=== PATIENT | male | born 1990 | race African-American/Black ===

== ENCOUNTER 2019-11-05 22:54 | Emergency (ER) | payer OTHER ==
[~2019-11-05] VITALS: Ht 185.4 cm; Wt 108.9 kg
--- NOTE | 2019-11-05 23:40 | NUR ---
PT [id number]. BIBS. C/O L CHEST PAIN @ 2230. NOT PRESENT AT THIS TIME. PT STATES HE HAS HX OF ANIXETY AND FEELS ANXIOUS. VSS. PLACED ON MONITOR AND PULSE OX. VSS. NO ACUTE DISTRESS NOTED.
[2019-11-05 23:58] LABS: BASOPHILS # (AUTO) 0.1 /CMM (0.0-0.2); BASOPHILS % (AUTO) 0.7 % (0.0-2.0); EOSINOPHILS % (AUTO) 1.9 % (0.0-6.0); HEMATOCRIT 45 % (39-51); HEMOGLOBIN 14.9 g/dL (13.5-17.5); LYMPHOCYTES # (AUTO) 2.9 /CMM (0.8-4.8); MEAN CORPUSCULAR HGB CONC 34 g/dl (31.0-36.0); MEAN CORPUSCULAR VOLUME 88 fL (80-96); MONOCYTES # (AUTO) 0.6 /CMM (0.1-1.30); MONOCYTES % (AUTO) 9.1 % (2.0-12.0); NEUTROPHILS # (AUTO) 3.3 /CMM (1.8-8.9); NEUTROPHILS % (AUTO) 47.3 % (43.0-81.0); PLATELET COUNT (AUTO) 155 /CMM (150-450); RED BLOOD CELL COUNT(AUTO) 5.05 MIL/uL (4.5-6.0); WHITE BLOOD COUNT (AUTO) 7.1 K/uL (4.3-11.0)
[2019-11-06] MEDS ORDERED: IV NS 0.9% 1,000 ML BAG IV ONE
[2019-11-06 00:13] LABS: ALANINE AMINOTRANSFERASE 27 U/L (12-78); ALBUMIN 4.1 g/dL (3.4-5.0); ALKALINE PHOSPHATASE 82 U/L (46-116); ASPARTATE AMINOTRANSFERASE 27 U/L (15-37); BILIRUBIN,TOTAL 0.2 mg/dL (0.2-1.0); CALCIUM, SERUM 9.2 mg/dL (8.5-10.1); CARBON DIOXIDE 27 mmol/L (21-32); CHLORIDE 103 mmol/L (98-107); CREATININE 1.3 mg/dL (0.6-1.3); GLUCOSE 100 mg/dL (74-106); POTASSIUM 3.9 mmol/L (3.5-5.1); SODIUM SERUM 138 mmol/L (136-145); TOTAL PROTEIN, SERUM 7.8 g/dL (6.4-8.2); UREA NITROGEN, BLOOD 24 mg/dL (7-18)
--- NOTE | 2019-11-06 01:33 | NUR ---
IV removed. Catheter intact and site benign. Pressure and 4x4 applied to site. No bleeding noted. Patient discharged to home in stable condition. Written and verbal after care instructions given. Patient verbalizes understanding of instruction. PT REC'D A COPY OF THE LABS. VSS. PT AMBULATED OUT WITH A STEADY GAIT. PT'S FRIEND IS DRIVING THE PT HOME. PT TO F/U WITH HIS PMD.
[2019-11-06 01:35] VITALS: BP 159/85
== END 2019-11-06 01:36 | disposition home or self-care (01) ==
LOC: ER 22:57
DX: N28.9 Disorder of kidney and ureter, unspecified (principal); R25.2 Cramp and spasm; R07.89 Other chest pain; Z60.2 Problems related to living alone
CPT/HCPCS: 36415; 71045; 80048; 80076; 82550; 84484; 85025; 93005; 99285; J7030